=== PATIENT | female | born 1960 | race Caucasian/White ===

== ENCOUNTER → 2016-05-24 | Outpatient (CLI) | payer BC | END | disposition home or self-care (01) | LOC: US 09:00 | DX: Z85.850 Personal history of malignant neoplasm of thyroid (principal) ==

== ENCOUNTER → 2016-06-06 | Outpatient (CLI) | payer BC ==
[2016-06-07 16:09] LABS: THYROGLOBULIN ANTIBODY <1.0 IU/mL (0.0-0.9); THYROGLOBULINN AB IMA <0.1 ng/mL (1.5-38.5)
== END | disposition home or self-care (01) ==
LOC: LAB 10:41
PROVIDERS: Internal Medicine Endocrinology, Diabetes & Metabolism
DX: E89.0 Postprocedural hypothyroidism (principal)

== ENCOUNTER → 2016-10-05 | Outpatient (CLI) | payer OTHER | END | disposition home or self-care (01) | LOC: LAB 11:06 | DX: E89.0 Postprocedural hypothyroidism (principal) ==